=== PATIENT | male | born 1995 | race Caucasian/White ===

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

== ENCOUNTER 2017-01-11 13:55 | Emergency (ER) | payer BC ==
[~2017-01-11] VITALS: Ht 180.3 cm; Wt 85.9 kg
[~2017-01-11 13:55] MED LIST: KEFL500C17 PO
[2017-01-11 13:58] VITALS: BP 137/86
== END 2017-01-11 16:49 | disposition home or self-care (01) ==
LOC: M ED 13:55
DX: B07.9 Viral wart, unspecified (principal); Z91.038 Other insect allergy status; F17.210 Nicotine dependence, cigarettes, uncomplicated

== ENCOUNTER → 2018-05-08 | Outpatient (CLI) | payer BC, SELFPAY ==
[~2018-05-08] MED LIST changes: +IBUP-1022 PO; +IBUP-1114 PO
--- NOTE | 2018-05-09 07:20 | REP ---
RIGHT KNEE, FIVE VIEWS: There is no evidence of an acute fracture, dislocation or intrinsic bone disease. IMPRESSION: No fracture or dislocation. Electronically Signed by Alexsander Rebolledo MD 05/09/2018 09:23 A
== END ==
LOC: M WUC 16:33
PROVIDERS: ATTEND Physician Assistant
DX: S83.421A Sprain of lateral collateral ligament of right knee, initial encounter (principal); Y93.9 Activity, unspecified; Y99.9 Unspecified external cause status; Y92.9 Unspecified place or not applicable; X58.XXXA Exposure to other specified factors, initial encounter

== ENCOUNTER 2018-05-10 16:32 | Emergency (ER) | payer BC, SELFPAY ==
[~2018-05-10] VITALS: Ht 180.3 cm; Wt 96.1 kg
[~2018-05-10 16:32] MED LIST changes: -IBUP-1022 PO; -IBUP-1114 PO
[2018-05-10] MEDS ORDERED: IBUP-1114 PO (16:49)
[2018-05-10] MEDS ORDERED: IBUP-1022 PO (18:55)
[2018-05-10 18:59] VITALS: BP 135/81
== END 2018-05-10 19:01 | disposition home or self-care (01) ==
LOC: M ED 16:32
DX: M25.561 Pain in right knee (principal)

== ENCOUNTER 2018-07-11 13:38 | Emergency (ER) | payer BC, SELFPAY ==
[~2018-07-11] VITALS: Ht 180.3 cm; Wt 98.4 kg
[~2018-07-11 13:38] MED LIST changes: +IBUP-1022 PO; +IBUP-1114 PO
[2018-07-11 13:39] VITALS: BP 128/78
[2018-07-11] MEDS ORDERED: LIDOCAINE 2% MDV 20 ML VIAL SC ONE (15:15)
== END 2018-07-11 15:27 | disposition home or self-care (01) ==
LOC: M ED 13:38
DX: S61.215A Laceration without foreign body of left ring finger without damage to nail, initial encounter (principal); W26.0XXA Contact with knife, initial encounter; Y92.018 Other place in single-family (private) house as the place of occurrence of the external cause; Z91.048 Other nonmedicinal substance allergy status

== ENCOUNTER 2019-04-17 17:48 | Emergency (ER) | payer BC, SELFPAY ==
[~2019-04-17] VITALS: Ht 180.3 cm; Wt 87.9 kg
[2019-04-17 21:07] LABS: BASO % 0.4 % (0.0-1.0); EOS # 0.1 10^3/uL (0.0-0.5); EOS % 0.8 % (0.0-3.0); HEMATOCRIT 48.1 % (42.0-52.0); HEMOGLOBIN 16.5 g/dl (13.5-17.5); LYMPH # 1.8 10^3/uL (1.5-5.0); LYMPH % 17.8 % (24.0-44.0); MEAN CORPUSCULAR HEMOGLOBIN 31.5 pg (27.0-33.0); MEAN CORPUSCULAR HGB CONC 34.3 g/dl (32.0-36.5); MONO # 0.8 10^3/uL (0.0-0.8); MONO % 7.8 % (0.0-5.0); NEUTROPHILS # 7.2 10^3/uL (1.5-8.5); NEUTROPHILS % 72.8 % (36.0-66.0); PLATELET COUNT, AUTOMATED 219 10^3/uL (150-450); RED BLOOD COUNT 5.23 10^6/uL (4.30-6.10); WHITE BLOOD COUNT 9.9 10^3/uL (4.0-10.0)
[2019-04-17 21:25] LABS: ERYTHROCYTE SEDIMENTATION RATE 1 mm/hr (0-15)
[2019-04-17] MEDS ORDERED: ISOVUE-370 76% 100ML VIAL (Q9967) As Ordered ONE (21:42)
--- NOTE | 2019-04-17 22:26 | REPVR ---
PROCEDURE INFORMATION: Exam: CT Neck With Contrast Exam date and time: 04/17/2019 9:54 PM Age: 23 years old Clinical indication: Mass, lump, or swelling in neck; Additional info: Swelling to R jaw, R/O abscess TECHNIQUE: Imaging protocol: Computed tomography images of the neck with intravenous contrast. Radiation optimization: All CT scans at this facility use at least one of these dose optimization techniques: automated exposure control; mA and/or kV adjustment per patient size (includes targeted exams where dose is matched to clinical indication); or iterative reconstruction. Contrast material: ISOVUE 370; Contrast volume: 75 ml; Contrast route: IV; COMPARISON: No relevant prior studies available. FINDINGS: Nasopharynx: Unremarkable. Oropharynx: Unremarkable. No significant tonsillar enlargement. Hypopharynx: Unremarkable. Larynx: Unremarkable. Normal epiglottis. Retropharyngeal space: Unremarkable. Submandibular/Parotid glands: Intrinsically unremarkable. Thyroid: Normal. No enlarged or calcified nodules. Lymph nodes: Submental and submandibular lymphadenopathy on the right measures up to 5 mm. Jugulodigastric lymph nodes measure up to 11 mm on the left and 12 mm on the right. Level 2 carotid lymphadenopathy on the right measures up to 6 mm. These are likely postinflammatory. Trachea: Visualized trachea is unremarkable. Lungs: Unremarkable as visualized. Bones/joints: Unremarkable. No acute fracture. Soft tissues: Marked deep subcutaneous inflammation in the right para mandibular region extending from just below the buccal region to the inferior aspect of the right submandibular gland. No well-defined abscess demonstrated. IMPRESSION: 1. Marked deep subcutaneous inflammation in the right para mandibular region extending from just below the buccal region to the inferior aspect of the right submandibular gland. No well-defined abscess demonstrated. 2. Inflammatory lymphadenopathy demonstrated on the right as described above. Electronically signed by: Rosales Garner On 04/17/2019 22:25:49 PM
[2019-04-17] MEDS ORDERED: BENZOCAINE 20% GEL 9GM TUBE (ANBESOL MAX STRENGTH) TOP ONE (23:15)
[2019-04-17] MEDS ORDERED: ARTICAINE HCL/EPINEPHRINE 4%-1:200,000 1.7ML INJ (SEPTOCAINE) SM ONE (23:15)
[2019-04-17] MEDS ORDERED: CYCLOBENZAPRINE 10 MG TAB PO ONE (23:15)
[2019-04-17] MEDS ORDERED: AUGMENTIN 875 MG TAB PO ONE (23:45)
[2019-04-17] MEDS ORDERED: AUGM875T28 PO (23:46)
[2019-04-17 23:59] VITALS: BP 133/92
== END 2019-04-18 00:03 | disposition home or self-care (01) ==
LOC: M ED 17:48
DX: K04.7 Periapical abscess without sinus (principal); F17.200 Nicotine dependence, unspecified, uncomplicated; Z91.89 Other specified personal risk factors, not elsewhere classified
CPT/HCPCS: 64400; 70491; 80047; 85025; 85652; 86140; 99284; Q9967

== ENCOUNTER → 2020-06-10 | Outpatient (CLI) | payer SELFPAY ==
[~2020-06-10] MED LIST changes: +AUGM875T28 PO
== END ==
LOC: M LABSMTC 14:00
PROVIDERS: ATTEND Pediatrics
DX: Z20.822 Contact with and (suspected) exposure to COVID-19 (principal)

== ENCOUNTER 2021-06-02 17:13 | Emergency (ER) | payer SELFPAY ==
[~2021-06-02] VITALS: Ht 180.3 cm; Wt 108.8 kg
[2021-06-02] MEDS ORDERED: GI COCKTAIL 50ML BTL(HYOSCYAMINE/MAALOX/LIDOCAINE VISCOUS)(1:3:1) PO ONE (21:00)
[2021-06-02] MEDS ORDERED: OMEPRAZOLE 20MG CAP PO ONE (21:00)
[2021-06-02 21:29] LABS: BASO # 0.1 10^3/uL (0.0-0.2); BASO % 0.6 % (0.0-1.0); EOS # 0.1 10^3/uL (0.0-0.5); EOS % 1.3 % (0.0-3.0); HEMATOCRIT 49.3 % (42.0-52.0); HEMOGLOBIN 17.1 g/dl (13.5-17.5); LYMPH # 2.9 10^3/uL (1.5-5.0); LYMPH % 37.3 % (24.0-44.0); MEAN CORPUSCULAR HEMOGLOBIN 31.7 pg (27.0-33.0); MEAN CORPUSCULAR HGB CONC 34.7 g/dl (32.0-36.5); MEAN CORPUSCULAR VOLUME 91.3 fl (80.0-96.0); MONO # 0.5 10^3/uL (0.0-0.8); MONO % 6.7 % (2.0-8.0); NEUTROPHILS # 4.2 10^3/uL (1.5-8.5); NEUTROPHILS % 53.7 % (36.0-66.0); PLATELET COUNT, AUTOMATED 251 10^3/uL (150-450); WHITE BLOOD COUNT 7.9 10^3/uL (4.0-10.0)
[2021-06-02 21:53] LABS: ALBUMIN 4.3 GM/DL (3.2-5.2); BILIRUBIN,DIRECT 0.4 MG/DL (0.0-0.2); BILIRUBIN,TOTAL 2.4 MG/DL (0.2-1.0); TOTAL PROTEIN 6.9 GM/DL (6.4-8.2)
[2021-06-02] MEDS ORDERED: FAMO20TA PO (22:25)
[2021-06-02] MEDS ORDERED: BENZ200C70 PO (22:25)
[2021-06-02] MEDS ORDERED: MUCI1TAB16 PO (22:25)
[2021-06-02] MEDS ORDERED: BENZONATATE 100MG CAPSULE PO ONE (22:30)
[2021-06-02 22:31] VITALS: BP 137/85
== END 2021-06-02 22:51 | disposition home or self-care (01) ==
LOC: M ED 17:13
DX: R05.9 Cough, unspecified (principal); R06.02 Shortness of breath; R07.9 Chest pain, unspecified; Z79.899 Other long term (current) drug therapy